=== PATIENT | female | born 1950 | race Caucasian/White ===

== ENCOUNTER → 2016-11-26 | Outpatient (REF) | payer OTHER ==
[2016-11-26 13:23] LABS: PERCENT SATURATION 18.5 % (13.2-37.4)
== END ==
LOC: M LAB REF 12:21
PROVIDERS: ATTEND Internal Medicine
DX: D50.9 Iron deficiency anemia, unspecified (principal)

== ENCOUNTER → 2018-05-14 | Outpatient (REF) | payer OTHER ==
[2018-05-14 19:02] LABS: IRON (FE) 70 UG/DL (50-170); PERCENT SATURATION 17.4 % (13.2-45.0); TOTAL IRON BINDING CAPACITY 402 UG/DL (250-450)
[2018-05-17 11:43] LABS: HEPATITIS C VIRUS ABY INDEX 0.1 INDEX (<0.8)
== END ==
LOC: M LAB REF 17:33
DX: D50.9 Iron deficiency anemia, unspecified (principal); Z01.89 Encounter for other specified special examinations

== ENCOUNTER → 2018-05-18 | Outpatient (CLI) | payer OTHER | LOC: M WHC 13:38 | DX: Z12.31 Encounter for screening mammogram for malignant neoplasm of breast (principal) | CPT/HCPCS: 77067 ==

== ENCOUNTER → 2018-09-27 | Outpatient (REF) | payer OTHER ==
[2018-09-28 15:26] LABS: ANTINUCLEAR ANTIBODIES DIRECT Negative (Negative)
== END ==
LOC: M LAB REF 12:14
PROVIDERS: ATTEND Internal Medicine
DX: Z82.69 Family history of other diseases of the musculoskeletal system and connective tissue (principal)

== ENCOUNTER → 2019-01-06 | Outpatient (REF) | payer OTHER ==
[~2019-01-06] MED LIST: ALEV220T22 PO; HYDR25TAB PO; LEVO200T4 PO; LOSA100T50 PO; OMEP40CA2 PO; VITA100014 PO; VITA100T14 PO; VITA200010 PO
[2019-01-06 15:41] LABS: PERCENT SATURATION 21.3 % (13.2-45.0)
== END ==
LOC: M LAB REF 14:49
PROVIDERS: ATTEND Internal Medicine
DX: D50.9 Iron deficiency anemia, unspecified (principal)

== ENCOUNTER 2019-01-20 10:18 | Day surgery (SDC) | payer OTHER ==
[~2019-01-20] VITALS: Ht 165.1 cm; Wt 102.1 kg
[2019-01-20] MEDS ORDERED: NS 1,000 ML IV ONE (11:00)
[2019-01-20] MEDS ORDERED: LIDOCAINE 2% INJ 100 MG/5 ML SDV (FOR ANES.) As Ordered ONE (11:29)
[2019-01-20] MEDS ORDERED: PROPOFOL 200 MG/20 ML VIAL As Ordered ONE ×2 (11:29→11:43)
--- NOTE | 2019-01-20 11:38 | ROOR ---
Patient Name: Ferny Dukes Procedure Date: 01/20/2019 11:16 AM Date of : 1950 Age: 68 Room: [facility] Gender: Female Note Status: Finalized Procedure: Upper GI endoscopy Indications: Suspected esophageal reflux Providers: Biju Palma Jr, MD Referring MD: NETTA BAXTER JR, MD Requesting Provider: Medicines: Propofol per Anesthesia Complications: No immediate complications. Procedure: Pre-Anesthesia Assessment: - Prior to the procedure, a History and Physical was performed, and patient medications and allergies were reviewed. The patient is competent. The risks and benefits of the procedure and the sedation options and risks were discussed with the patient. All questions were answered and informed consent was obtained. Patient identification and proposed procedure were verified by the physician and the nurse in the pre-procedure area and in the procedure room. Mental Status Examination: alert and oriented. Airway Examination: normal oropharyngeal airway and neck mobility. Respiratory Examination: clear to auscultation. CV Examination: normal. ASA Grade Assessment: II - A patient with mild systemic disease. After reviewing the risks and benefits, the patient was deemed in satisfactory condition to undergo the procedure. The anesthesia plan was to use moderate sedation / analgesia (conscious sedation). Immediately prior to administration of medications, the patient was re-assessed for adequacy to receive sedatives. The heart rate, respiratory rate, oxygen saturations, blood pressure, adequacy of pulmonary ventilation, and response to care were monitored throughout the procedure. The physical status of the patient was re-assessed after the procedure. The Endoscope was introduced through the mouth, and advanced to the second part of duodenum. The upper GI endoscopy was accomplished without difficulty. The patient tolerated the procedure well. Findings: The upper third of the esophagus, middle third of the esophagus and lower third of the esophagus were normal. A medium-sized hiatal hernia was present. LA Grade A (one or more mucosal breaks less than 5 mm, not extending between tops of 2 mucosal folds) esophagitis was found at the gastroesophageal junction. Biopsies were taken with a cold forceps for histology. The cardia, gastric fundus and gastric body were normal. Diffuse mildly erythematous mucosa without bleeding was found in the gastric antrum. Biopsies were taken with a cold forceps for histology. The duodenal bulb was normal. Patchy moderately erythematous mucosa without active bleeding and with no stigmata of bleeding was found in the first portion of the duodenum. Impression: - Normal upper third of esophagus, middle third of esophagus and lower third of esophagus. - Medium-sized hiatal hernia. - LA Grade A reflux esophagitis. Biopsied. - Normal cardia, gastric fundus and gastric body. - Erythematous mucosa in the antrum. Biopsied. - Normal duodenal bulb. - Erythematous duodenopathy. Recommendation: - Discharge patient to home (ambulatory). - Return to my office in 2 weeks. Biju Palma MD Biju Palma Jr, MD 01/20/2019 11:37:42 AM Electronically signed by Biju Palma Jr, MD Number of Addenda: 0 Note Initiated On: 01/20/2019 11:16 AM Estimated Blood Loss: Estimated blood loss: none.
--- NOTE | 2019-01-20 11:49 | ROOR ---
Patient Name: Ferny Dukes Procedure Date: 01/20/2019 11:23 AM Date of : 1950 Age: 68 Room: [facility] Gender: Female Note Status: Finalized Procedure: Colonoscopy Indications: Diarrhea Providers: Biju Palma Jr, MD Referring MD: NETTA BAXTER JR, MD Requesting Provider: Medicines: Propofol per Anesthesia Complications: No immediate complications. Procedure: Pre-Anesthesia Assessment: - Prior to the procedure, a History and Physical was performed, and patient medications and allergies were reviewed. The patient is competent. The risks and benefits of the procedure and the sedation options and risks were discussed with the patient. All questions were answered and informed consent was obtained. Patient identification and proposed procedure were verified by the physician and the nurse in the pre-procedure area and in the procedure room. Mental Status Examination: alert and oriented. Airway Examination: normal oropharyngeal airway and neck mobility. Respiratory Examination: clear to auscultation. CV Examination: normal. ASA Grade Assessment: II - A patient with mild systemic disease. After reviewing the risks and benefits, the patient was deemed in satisfactory condition to undergo the procedure. The anesthesia plan was to use moderate sedation / analgesia (conscious sedation). Immediately prior to administration of medications, the patient was re-assessed for adequacy to receive sedatives. The heart rate, respiratory rate, oxygen saturations, blood pressure, adequacy of pulmonary ventilation, and response to care were monitored throughout the procedure. The physical status of the patient was re-assessed after the procedure. The Colonoscope was introduced through the anus and advanced to the cecum, identified by appendiceal orifice and ileocecal valve. The colonoscopy was performed without difficulty. The patient tolerated the procedure well. The quality of the bowel preparation was adequate. Findings: The rectum, recto-sigmoid colon, cecum, appendiceal orifice and ileocecal valve appeared normal. Multiple small and large-mouthed diverticula were found in the sigmoid colon. Scattered small-mouthed diverticula were found in the descending colon, transverse colon and ascending colon. Impression: - The rectum, recto-sigmoid colon, cecum, appendiceal orifice and ileocecal valve are normal. - Diverticulosis in the sigmoid colon. - Diverticulosis in the descending colon, in the transverse colon and in the ascending colon. - No specimens collected. Recommendation: - Discharge patient to home (ambulatory). - Repeat colonoscopy in 10 years for screening purposes. Biju Palma MD Biju Palma Jr, MD 01/20/2019 11:49:40 AM Electronically signed by iBju Palma Jr, MD Number of Addenda: 0 Note Initiated On: 01/20/2019 11:23 AM Estimated Blood Loss: Estimated blood loss: none.
[2019-01-20 12:10] VITALS: BP 159/101
== END 2019-01-20 12:22 | disposition home or self-care (01) ==
LOC: M OPP 10:18
PROVIDERS: ATTEND Surgery
DX: K57.30 Diverticulosis of large intestine without perforation or abscess without bleeding (principal); R19.7 Diarrhea, unspecified; K21.0 Gastro-esophageal reflux disease with esophagitis; K44.9 Diaphragmatic hernia without obstruction or gangrene; K31.89 Other diseases of stomach and duodenum; Z88.0 Allergy status to penicillin; Z79.899 Other long term (current) drug therapy

== ENCOUNTER → 2019-07-12 | Outpatient (REF) | payer MEDICARE, OTHER ==
[~2019-07-12] MED LIST changes: +CYAN100050 PO; -OMEP40CA2 PO; +OMEP40CA97 PO; -VITA100014 PO
[2019-07-12 13:59] LABS: INFLUENZA A AMPLIFICATION NEGATIVE (NEGATIVE); INFLUENZA B AMPLIFICATION NEGATIVE (NEGATIVE)
== END ==
LOC: M LAB REF 12:29
PROVIDERS: ATTEND Nurse Practitioner Adult Health
DX: R50.9 Fever, unspecified (principal); J06.9 Acute upper respiratory infection, unspecified

== ENCOUNTER → 2020-05-21 | Outpatient (REF) | payer MEDICARE, OTHER | LOC: M LAB REF 11:16 | PROVIDERS: ATTEND Internal Medicine | DX: N39.0 Urinary tract infection, site not specified (principal); M79.659 Pain in unspecified thigh ==

== ENCOUNTER → 2021-06-20 | Outpatient (REF) | payer MEDICARE, OTHER ==
[~2021-06-20] MED LIST changes: +HYDR-3490 PO; -HYDR25TAB PO; +OMEP40CA4 PO; -OMEP40CA97 PO
[2021-06-20 12:55] LABS: C REACTIVE PROTEIN QUANTITATIV 1.23 MG/DL (0.00-0.30); RHEUMATOID FACTOR QUANT < 10.0 IU/ML (<15.0)
== END ==
LOC: M LAB REF 12:05
PROVIDERS: ATTEND Internal Medicine
DX: M81.0 Age-related osteoporosis without current pathological fracture (principal)

== ENCOUNTER → 2021-07-11 | Outpatient (REF) | payer MEDICARE, OTHER | LOC: M LAB REF 16:25 | PROVIDERS: ATTEND Internal Medicine | DX: M15.9 Polyosteoarthritis, unspecified (principal); M85.9 Disorder of bone density and structure, unspecified ==

== ENCOUNTER → 2021-07-30 | Outpatient (REF) | payer MEDICARE, OTHER | LOC: M LAB REF 12:20 | PROVIDERS: ATTEND Internal Medicine | DX: M15.9 Polyosteoarthritis, unspecified (principal); M35.3 Polymyalgia rheumatica ==

== ENCOUNTER → 2021-10-22 | Outpatient (REF) | payer MEDICARE, OTHER ==
[~2021-10-22] MED LIST changes: +LOSA100T45 PO; -LOSA100T50 PO
== END ==
LOC: M LAB REF 16:17
PROVIDERS: ATTEND Internal Medicine
DX: M35.3 Polymyalgia rheumatica (principal)

== ENCOUNTER → 2021-11-05 | Outpatient (REF) | payer MEDICARE, OTHER | LOC: M LAB REF 13:25 | PROVIDERS: ATTEND Internal Medicine | DX: M35.3 Polymyalgia rheumatica (principal) ==

== ENCOUNTER → 2021-11-19 | Outpatient (REF) | payer MEDICARE, OTHER | LOC: M LAB REF 16:23 | PROVIDERS: ATTEND Internal Medicine | DX: M35.3 Polymyalgia rheumatica (principal) ==

== ENCOUNTER → 2021-12-03 | Outpatient (REF) | payer MEDICARE, OTHER | LOC: M LAB REF 12:06 | PROVIDERS: ATTEND Internal Medicine | DX: M35.3 Polymyalgia rheumatica (principal) ==

== ENCOUNTER → 2021-12-30 | Outpatient (CLI) | payer MEDICARE, OTHER | LOC: M WUC 10:09 | PROVIDERS: ATTEND Internal Medicine | DX: M54.50 Low back pain, unspecified (principal); M25.78 Osteophyte, vertebrae; M51.37 Other intervertebral disc degeneration, lumbosacral region ==

== ENCOUNTER → 2021-12-31 | Outpatient (REF) | payer MEDICARE, OTHER | LOC: M LAB REF 12:37 | PROVIDERS: ATTEND Internal Medicine | DX: M35.3 Polymyalgia rheumatica (principal) ==

== ENCOUNTER → 2022-04-11 | Outpatient (CLI) | payer MEDICARE, OTHER | LOC: M WHC 10:58 | PROVIDERS: ATTEND Internal Medicine | DX: Z12.31 Encounter for screening mammogram for malignant neoplasm of breast (principal); M81.0 Age-related osteoporosis without current pathological fracture; M85.851 Other specified disorders of bone density and structure, right thigh ==

== ENCOUNTER → 2022-04-21 | Outpatient (REF) | payer MEDICARE, OTHER ==
[2022-04-22 18:07] LABS: FERRITIN 12 NG/ML (8-252); IRON (FE) 46 UG/DL (50-170)
== END ==
LOC: M LAB REF 16:34
PROVIDERS: ATTEND Internal Medicine
DX: D50.9 Iron deficiency anemia, unspecified (principal)

== ENCOUNTER → 2023-03-03 | Outpatient (REF) | payer MEDICARE, OTHER ==
[~2023-03-03] MED LIST changes: +CYAN-1 PO; -CYAN100050 PO; -LOSA100T45 PO; +LOSA100T46 PO
[2023-03-09 17:07] LABS: FREE KAPPA LIGHT CHAINS SERUM 23.2 mg/L (3.3-19.4); FREE LAMBDA LIGHT CHAINS SERUM 12.9 mg/L (5.7-26.3)
== END ==
LOC: M LAB REF 10:31
PROVIDERS: ATTEND Internal Medicine
DX: D72.819 Decreased white blood cell count, unspecified (principal)

== ENCOUNTER → 2024-01-22 | Outpatient (REF) | payer MEDICARE, OTHER ==
[~2024-01-22] MED LIST changes: +ATOR1TAB19; +GABA-282; +LEVO150T7; +LEVO175T2; +NOXI1TAB PO
== END ==
LOC: M LAB REF 12:29
PROVIDERS: ATTEND Internal Medicine
DX: D64.9 Anemia, unspecified (principal)

== ENCOUNTER 2024-02-10 10:52 | Outpatient (CLI) | payer MEDICARE, OTHER ==
[~2024-02-10] VITALS: Ht 165.1 cm; Wt 100.0 kg
[~2024-02-10 10:52] MED LIST changes: +ALBUTEROL SULFATE 2.5MG/0.5ML INH NEB SOLN INH PRN; +EPINEPHrine INJ 1 MG/ML 1ML AMP IM PRN; +NS 1,000 ML IV SCH; +diphenhydrAMINE 50MG/ML VIAL IV PRN; +methylPREDNISolone 125MG 2ML VIAL IV PRN
[2024-02-10 11:40] VITALS: BP 179/85; O2SAT 97
[2024-02-10] MEDS: IRON SUCROSE 25 MG in NS 23.75 ML IV ONE (12:22)
[2024-02-10] MEDS: IRON SUCROSE 475 MG in NS 250 ML IV ONE (13:22)
[2024-02-10 13:53] VITALS: BP 145/77; O2SAT 99
[2024-02-10] MEDS ORDERED: ACET650T61 PO (14:33)
[2024-02-10 17:00] VITALS: BP 159/83; O2SAT 97
[2024-02-10 17:40] VITALS: BP 172/79; O2SAT 99
== END 2024-02-10 17:40 | disposition home or self-care (01) ==
LOC: M INFU 10:52
PROVIDERS: ATTEND Internal Medicine
DX: D50.9 Iron deficiency anemia, unspecified (principal); Z88.0 Allergy status to penicillin
CPT/HCPCS: 96365; 96366; J1756

== ENCOUNTER → 2024-03-02 | Outpatient (REF) | payer MEDICARE, OTHER ==
[~2024-03-02] MED LIST changes: +ACET650T61 PO; -ALBUTEROL SULFATE 2.5MG/0.5ML INH NEB SOLN INH PRN; -EPINEPHrine INJ 1 MG/ML 1ML AMP IM PRN; -NS 1,000 ML IV SCH; -diphenhydrAMINE 50MG/ML VIAL IV PRN; -methylPREDNISolone 125MG 2ML VIAL IV PRN
[2024-03-02 12:49] LABS: PERCENT SATURATION 19.4 % (13.2-45.0)
== END ==
LOC: M LAB REF 11:23
PROVIDERS: ATTEND Internal Medicine
DX: D50.9 Iron deficiency anemia, unspecified (principal)

== ENCOUNTER → 2024-08-01 | Outpatient (REF) | payer MEDICARE, OTHER ==
[~2024-08-01] MED LIST changes: +GABA-1172; -GABA-282
[2024-08-02 14:58] LABS: PERCENT SATURATION 20.3 % (13.2-45.0)
== END ==
LOC: M LAB REF 11:44
PROVIDERS: ATTEND Internal Medicine
DX: D50.9 Iron deficiency anemia, unspecified (principal)

== ENCOUNTER → 2025-08-02 | Outpatient (REF) | payer MEDICARE, OTHER ==
[~2025-08-02] MED LIST changes: +METF500T13; -VITA100T14 PO; +VITA100T69 PO
[2025-08-02 12:07] LABS: IRON (FE) 39.0 UG/DL (50-170); PERCENT SATURATION 11.1 % (13.2-45.0)
== END ==
LOC: M LAB REF 11:31
PROVIDERS: ATTEND Internal Medicine
DX: D50.9 Iron deficiency anemia, unspecified (principal)